=== PATIENT | female | born 1965 | race Asian ===

== ENCOUNTER 2019-07-03 12:21 | Day surgery (SDC) | payer OTHER, SELFPAY ==
[2019-07-03] VITALS (12 sets, daily range): BP systolic 114–175; BP diastolic 64–96; PULSE 59–73; RESP 13–23; TEMP 36.3–37.4; O2SAT 92–100; BMI 28.3
[2019-07-03] MEDS: LACTATED RINGERS 1,000 ML 42 ML IV (12:50)
--- NOTE | 2019-07-03 13:26 | PM.PREOP ---
Pre-operative Note Interval Note History & Physical reviewed/Exam performed by Physician: Yes Changes to H&P: No H&P completed within 30 days and has changed as indicated here:: see outpt 06/26 note
[2019-07-03] MEDS: CEFAZOLIN 2 GM/100 ML FROZ.PIGGY IV (14:55)
--- NOTE | 2019-07-03 15:09 | SUR.OPER ---
Lithotomy on padded OR bed, head on pillow, arms secured on padded arm boards at <90 degrees abduction. Legs secured in padded yellow fins stirrups.
[2019-07-03] MEDS: BUPIVACAINE 0.5% W/ EPI (PF) VIAL 30 ML INJ (15:14)
--- NOTE | 2019-07-03 16:00 | PM.OP.1 ---
Operative Date/Time/Diagnoses Date of procedure: 07/03/19 Time of procedure: 16:00 Pre-op diagnosis: uterine prolapse Post-op diagnosis: same Procedure & Clinicians Procedure: bilateral sacrospinous ligament fixation Same procedure as scheduled: Yes Indications: Uterine prolapse without vaginal wall prolapse Surgeon: Brenda Pearson Click Yes if Unassisted: Yes Anesthesia Type: General Operative Notes Findings: Cervix prolapses just outside the hymen uterus not enlarged. No cystocele or rectocele with good support to the urethra Closure Type: primary Specimen(s): none sent Applied: catheter Estimated Blood Loss (mL): 50 Blood products transfused: none Procedure in detail: Patient was brought to the operating room where she was placed in yellowfin stirrups and prepped and draped in the usual sterile fashion. A 20 point check system was reviewed prior to the beginning of the case. Pulsatile stockings were in place and functional throughout the case. Warming was in place. 2 g of Ancef were in prior to beginning of the case. A Martel catheter was placed. The posterior vaginal wall was injected with a dilute solution of 1% lidocaine with epinephrine. An incision was made with the scalpel. The dissection was undertaken laterally. 0 Prolene suture with the Capio passer was placed through the uterosacral ligament on the right side and sutured to the underside of the cervix. A 2nd suture of 0 Monodek was also placed through the uterosacral ligament and the underside of the cervix. Same procedure was performed on the opposite side. A finger was placed in the rectum to be sure there were no sutures placed through the rectal mucosa. The uterosacral sutures were tightened down and the vaginal incision was closed with 2-0 Vicryl suture. Vaginal packing was placed in the vagina and the Martel left in place. Counts of instruments and sponges were correct. The patient went to recovery room in good condition. Complications: none Post-operative Condition: stable Disposition: Acute Care Plan for aftercare: Monitor for pain and bleeding home in a.m. after packing removed
--- NOTE | 2019-07-03 16:53 | SUR.PHASEI ---
1649 Transferred patient to room 209 in stable condition. Patient continues to deny pain or nausea. VSS. Saline lock noted. All belongings returned to patient.
--- NOTE | 2019-07-03 17:04 | PC.NURSE ---
Addendum entered by Martha Echeverria R.N. 07/03/19 21:15: Patient awake, oriented, visiting with spouse in room. Denies pain or nausea. VS remain stable. Martel patent, gamaliel-pad is CDI. Moving legs around in bed, wiggling toes, wearing bilateral SCD's. Patient denies needs from staff at this time, instructed to call if she has any needs/concerns. Spouse reports he will stay the night, linens provided for window bench. Original Note: Post-op note: Ki brought from PACU via hospital bed, she is awake, drowsy, oriented x 3 and situation. VS stable, a bit hypertensive. She reports dull pain to her bottom, I told her that she has pain medication ordered as needed & to tell me when she feels that pain is increasing. Denies nausea. Martel patent with clear yellow output in collection bag. Per PACU patient has vag packing in place. Gamaliel-pad remains dry. Instructed to call staff if needs OOB, fall precautions in place, bed alarm is active.
[2019-07-03] MEDS: LACTATED RINGERS 1,000 ML 100 ML IV (17:35)
[2019-07-03] MEDS: DOCUSATE 250 MG CAPSULE PO (22:42)
--- NOTE | 2019-07-03 23:30 | PC.NURSE ---
Addendum entered by Mabel Abbott R.N. 07/04/19 05:46: Vaginal packing removed and catheter d'cd. Patient instructed in sx/prevention of UTI. Moderate amount serosanguinous drainage on gamaliel pad; changed. Denies pain. Original Note: Patient is alert and oriented. Breath sound CTA with RA sat of 93%. HRR. Denies nausea. BT present; passing flatus. Indwelling catheter is patent; urine is clear, dark yellow. No drainage on peripad. Denies pain. Able to turn self in bed. Wearing bilateral calf SCD's. Fall risk score is low; patient reminded to call for assistance if needing to get out of bed.
[2019-07-04] MEDS: LACTATED RINGERS 1,000 ML 100 ML IV (02:42)
[2019-07-04 05:39] VITALS: BP 109/62; PULSE 61; RESP 16; TEMP 36.4; O2SAT 95
[2019-07-04 08:00] VITALS: BP 129/76; PULSE 56; RESP 16; TEMP 36.4; O2SAT 96
[2019-07-04] MEDS: LOSARTAN 50 MG TABLET PO (08:50)
[2019-07-04] MEDS: ESCITALOPRAM 10 MG TABLET PO (08:50)
[2019-07-04] MEDS: DOCUSATE 250 MG CAPSULE PO (08:50)
--- NOTE | 2019-07-04 09:10 | PM.DS.1 ---
History of Present Illness History of Present Illness Date Patient Seen: 07/04/19 Time Patient Seen: 08:15 Chief complaint: *OPB* [id number] Narrative: Patient underwent a bilateral sacrospinous ligament fixation for uterine prolapse. She did well in the hospital and was able to urinate after the Martel and packing removed. Discharge Providers Provider Discharge Date: 07/04/19 Discharge provider: Brenda Pearson MD Summary Hospital Course Discharge Diagnosis: Uterine prolapse Hospital Course: Patient underwent a bilateral sacrospinous ligament fixation on 07/03/2019. She did well post operatively and was discharged home on postoperative day 1. Status at Discharge Cognitive/behavioral status at discharge: oriented Functional status at discharge: independent ambulation Overall status at discharge: patient is progressing back to baseline Time Spent with Patient Time spent: Less than 30 minutes Exam Vital Signs (past 8 hours): - 07/04/19 05:39 07/04/19 08:00 Temperature 97.5 F L 97.6 F Pulse Rate 61 56 L Respiratory Rate 16 16 Blood Pressure 109/62 129/76 Pulse Oximetry 95 96 Oxygen Delivery Method Room Air Oxygen Flow Rate 0 Narrative Exam Narrative: Abdomen is soft, nontender. Minimal vaginal bleeding. Extremities without edema and nontender. Discharge Plan Discharge Plan Patient Disposition: Home Discharge comment: Patient is encouraged to not let herself get constipated with stool softeners and laxatives as needed. Discharge Med Rec/Prescriptions Prescriptions: New oxycodone-acetaminophen 5-325 mg tablet 2 tab PO Q4-6H PRN (Reason: pain) Qty: 30 RF: 0 Continued losartan 50 mg tablet 50 mg PO DAILY RF: 0 magnesium 200 mg tablet 400 mg PO DAILY RF: 0 krill oil 500 mg capsule 500 mg PO DAILY RF: 0 escitalopram oxalate 10 mg Tablet 10 mg PO DAILY RF: 0 Follow up/Referrals: Brenda Pearson MD [Physician] - 2 Weeks Discharge Orders: Discharge (Order); Ordered 07/04/19 Ordered By: Brenda Pearson Provider Discharge Instructions Diet: Regular Activity: Do not lift over 20 lb for 6 weeks. Skin/Wound/Dressing Care Report to your healthcare provider any signs of infection, such as:: chills, fever and increased pain Visit Report/Discharge Packet Stand Alone Forms: Surgery Discharge Discharge Data Attending Provider: Brenda Pearson Quality VTE Deep Vein Thrombosis/Pulmonary Embolism Present on Admission: No
--- NOTE | 2019-07-04 10:32 | CM.DANOTE ---
DCP: Case received, EMR reviewed and met with patient. Introduced self and role. , Guru, was present at bedside as well. Was able to converse with patient and obtain baseline history and activity information. DCP assessment completed with information currently available. Patient is a 54 year old female who admitted yesterday morning to the care of the surgical/OB team. PCP: Dr. Cleveland. Payer: confirmed: [facility]. Patient came to the hospital for a surgical procedure. She had a surgical procedure for uterine prolapse. Met with patient in her room, alert and oriented, lives with he , Guru, in [facility]. She is independent, has two children who are in their 20s. P: Patient is being discharged home today. Neda Parker RN/Inserting Press Operator
--- NOTE | 2019-07-04 11:27 | PC.NURSE ---
Discharge Pt states pain tolerable and declines medication. PIV removed prior to d/c. d/c instructions provided to pt. has Rx for pain meds. Pt states she took all belongings with her. left in w/c with [employer] escort.
== END 2019-07-04 11:15 | disposition home or self-care (01) ==
LOC: OR 12:24 → AC 16:53
PROVIDERS: Visit Provider Specialist
PROC: (CPT 57282; principal; 2019-07-03 13:30)
DX: N81.2 Incomplete uterovaginal prolapse (principal)
CPT/HCPCS: 57282; J0690; J1100; J1885; J2250; J2405; J2704; J3010